=== PATIENT | female | born 1945 | race Caucasian/White ===

== ENCOUNTER 2023-11-23 07:58 | Outpatient (AMB) | payer MEDICARE, MEDICAID, SELFPAY ==
[2023-11-23 08:12] VITALS: BP 160/88; PULSE 80; RESP 19; TEMP 36.5; O2SAT 98
--- NOTE | 2023-11-23 08:12 | ORTHONT_ITS ---
Vital signs 11/23/23 08:12 BP 160/88 H Blood Pressure Source Automatic Cuff Blood Pressure Location Right Upper Arm Position Sitting Respiration 19 Pulse 80 Pulse Source Monitor Temp 97.7 F Temp Source Temporal Artery Scan Pulse Oximetry (%) 98 Oxygen Delivery Method Room Air Comment WHEELCHAIR BOUND Med/Allergies Allergies & Medications Allergies codeine Allergy (Verified 11/23/23 08:17) Medication Reconciliation levothyroxine 175 mcg capsule 175 mcg PO QDAY 10/15/23 [History Confirmed 11/23/23] lisinopril 40 mg tablet 40 mg PO QDAY 10/15/23 [History Confirmed 11/23/23] Subjective Visit Visit for: follow up visit and MRI Immunization / Flu Flu Vaccine in the Last 12 Months: No Flu Vaccine Exclusion Criteria: No Exclusion Criteria History of Present Illness Chief complaint: F/U MRI RESULTS DONE @ [facility] Date of injury / onset of symptoms: APRIL 2023 Patient had a fall and 3 screws in the right hip from a percutaneous hip pinning of the femoral neck fracture. She has had continued pain. She has been nonambulatory for 5 months. She reports extreme weakness and pain down both legs. This starts in the hip and radiates to both legs. There is associated numbness and tingling. She has not had a spine workup. The patient recently had an MRI Personal History Occupation: DISABLED Red flag PMH: none Pain Pain level (0-10): 10 Pain duration: ALL DAY Pain location: other (specify) (WAIST/LEGS ) Pain quality: sharp and other (specify) (STABBING ) Pain timing: night and increases with activity Associated signs & symptoms: numbness and weakness Ambulatory data Ambulatory device: other (specify) (WHEELCHAIR ) Treatments Improvement with previous injections: No Improvement with PT: No Improvement with NSAIDS: n/a Review of Systems Review of Systems: All systems negative unless otherwise noted in HPI. Exam Exam Patient is in no acute distress and is cooperative with the examination today. Breathing is nonlabored. In no respiratory distress. Patient has no paraspinal tenderness. Spinal deformity [cannot] be appreciated. The gait of the patient is Antalgic and she has kyphosis of her spine Bilateral extremities were evaluated and demonstrates sensation intact to light touch. Palpable pedal pulses are present. No significant edema is present. Bilateral knees were examined and the patient has full strength and range of motion.. The left hip was examined. Patient was able to flex to 90 degrees, adduct to 30 degrees, abduct to 40 degrees, internally rotate to 20 degrees, and externally rotate to 20 degrees. Patient has a negative logroll. Stinchfield is negative. The patient is nontender diffusely to touch. The right hip was examined. Patient was able to flex to [90] degrees, adduct to [30] degrees, abduct to [40] degrees, internally rotate to [20] degrees, and externally rotate to [20] degrees. Patient has a [negative] logroll. The stinchfield is [negative]. X-rays of the right hip demonstrate percutaneous pins. Is in good position and there is no backing out. There is minimal arthritis An MRI from [facility] was reviewed by me today. This demonstrates multiple compression fractures from L2-L5. There is mild central stenosis as well. Assessment and Plan Problem List (1) Spinal stenosis: Status: Acute (2) Acute pain of right hip: Status: Acute (3) Compression fracture: Status: Acute Plan: Patient is a 78-year-old female with multiple compression fractures and spinal stenosis. I discussed with her the pain is most likely coming from the back as the majority of her pain is in her back and rating down her legs. I discussed with her that she should be on some sort of bone builder. I have given the patient multiple referrals including pain management as well as a spine surgeon. She may benefit from some sort of percutaneous kyphoplasty or vertebroplasty. I will defer this to a spine surgeon. I have referred this patient to Dr. Brayan Douglas for evaluation and injections at this patient would like to avoid surgery We will see her back in approximately 1 month just in case she has lost to follow-up Advanced Care Planning Discussion Advance care planning discussed with:: patient and significant other Office Procedures GNS Level of Care Nursing/Assessment Patient Status: Established Patient Nursing Assessment/Reassesment: Medication Reconciliation, Update PMH in EMR and Vital Signs Coordination of Care: Complex Care and Chronic Disease 1-5, Education Complex Pt/Fam, Consent,records obtained, informed consent, Results/Orders obtained and Staff clarify orders Established Patient Charge Established Patient Point Assignment: 95 Established Patient Point Charge: EP Level 3 (80-115) Past Medical History Past Medical History Have you ever been diagnosed with any of the following: Neurological Problems Parkinson's Disease: Yes Cardiology Problems Hypertension: Yes Respiratory Problems Smoking: No Smoking Cessation Counseling: No Smoking Exposure: No Tobacco Use: No Surgical History Total Hip Replacement: Yes
== END 2023-11-23 08:37 | disposition home or self-care (01) ==
PROVIDERS: PCP Family Medicine; Referring Provider Family Medicine; Supervising Provider Orthopaedic Surgery Adult Reconstructive Orthopaedic Surgery; Visit Provider Orthopaedic Surgery Adult Reconstructive Orthopaedic Surgery
DX: M25.551 Pain in right hip (principal); M48.061 Spinal stenosis, lumbar region without neurogenic claudication; G20.A1 Parkinson's disease without dyskinesia, without mention of fluctuations; Z87.81 Personal history of (healed) traumatic fracture; Z71.2 Person consulting for explanation of examination or test findings
CPT/HCPCS: 99213; G0463

== ENCOUNTER 2024-02-01 14:02 | Outpatient (AMB) | payer MEDICARE, MEDICAID, SELFPAY ==
[2024-02-01 14:26] VITALS: BP 157/91; PULSE 78; RESP 18; TEMP 36.4; O2SAT 97; BMI 20.3
--- NOTE | 2024-02-01 14:26 | RHCORTHONT_ITS ---
Vital signs 02/01/24 14:26 Height 1.6 m Height Method Stated Weight 52.163 kg Weight Measurement Method Standing Scale BMI 20.3 BP 157/91 H Blood Pressure Source Automatic Cuff Blood Pressure Location Right Upper Arm Position Sitting Respiration 18 Pulse 78 Pulse Source Monitor Temp 97.6 F Temp Source Temporal Artery Scan Pulse Oximetry (%) 97 Oxygen Delivery Method Room Air Med/Allergies Allergies & Medications Allergies codeine Allergy (Verified 02/01/24 14:27) Medication Reconciliation levothyroxine 175 mcg capsule 175 mcg PO QDAY 10/15/23 [History Confirmed 02/01/24] lisinopril 40 mg tablet 40 mg PO QDAY 10/15/23 [History Confirmed 02/01/24] Exam Exam Patient is in no acute distress and is cooperative with the examination today. Breathing is nonlabored. In no respiratory distress. Patient has no paraspinal tenderness. Spinal deformity [cannot] be appreciated. The gait of the patient is Antalgic and she has kyphosis of her spine Bilateral extremities were evaluated and demonstrates sensation intact to light touch. Palpable pedal pulses are present. No significant edema is present. Bilateral knees were examined and the patient has full strength and range of motion.. The left hip was examined. Patient was able to flex to 90 degrees, adduct to 30 degrees, abduct to 40 degrees, internally rotate to 20 degrees, and externally rotate to 20 degrees. Patient has a positive logroll. While rotation is great, she is 3 cm short on the left. The right hip was examined. Patient was able to flex to [90] degrees, adduct to [30] degrees, abduct to [40] degrees, internally rotate to [20] degrees, and externally rotate to [20] degrees. Patient has a [negative] logroll. The stinchfield is [negative]. A CT of the left hip was reviewed. There is an AP pelvis only. This demonstrates a high riding left hip with a completely displaced femoral neck fracture. Assessment and Plan Problem List (1) Left displaced femoral neck fracture: Status: Acute (2) Spinal stenosis: Status: Acute (3) Acute pain of right hip: Status: Acute (4) Compression fracture: Status: Acute Plan: Patient is a 78-year-old female with multiple compression fractures and spinal stenosis With a left femoral neck fracture that developed within the last 3 months. She has been nonweightbearing denies any trauma within the last 3 months. I discussed with her that it is quite strange that she has a femoral neck fracture right now Specially in the setting of no trauma. I discussed with her 2 options. I discussed nonoperative treatment versus surgical treatment. For the surgical treatment I discussed a Girdlestone as well as a left hip he miarthroplasty. He will need to be cemented as her bone is paperthin and is severely osteoporotic. She has had over 10 compression fractures in her spine and is at high risk for fracture during surgery as well as dislocation given her spine pathology. I discussed with her that I am not sure she will ever be able to walk as she has been unable to walk for the last year and and this does not include the fact that she now has a displaced femoral neck fracture. I discussed with her that she is at high risk for complications including infection, dislocation, and medical complications. The fracture is of unknown chronicity and I discussed with her that it will be very hard to reduce her hip. I also discussed with her she is at high risk for dislocation, infection, medical complications. This is extremely high risk surgery and will be a very difficult reduction that this is high riding hip and has been ongoing for quite a while. We will get her set up for surgery as soon as possible. I am not sending her to the ER as this is been ongoing for at least 4 to 6 weeks and there was no recent fall. Advanced Care Planning Discussion Advance care planning discussed with:: patient and significant other Questionairres Past Medical History Past Medical History Have you ever been diagnosed with any of the following: Neurological Problems Parkinson's Disease: Yes Cardiology Problems Hypertension: Yes Respiratory Problems Smoking: No Smoking Cessation Counseling: No Smoking Exposure: No Tobacco Use: No Surgical History Total Hip Replacement: Yes Subjective Immunization / Flu Flu Vaccine in the Last 12 Months: No Flu Vaccine Exclusion Criteria: Already Received History of Present Illness Chief complaint: Left hip pain Patient is a 78-year-old female with left hip pain. She has been nonambulatory for over 6 months at this point since her right hip fracture. She reports that she was weightbearing somewhat. She denies any fall. On recent x-rays when they were Doing a bone scan, they found that she had a femoral neck fracture. I looked at the prior imaging and it was not there on October 15, 2023. We discussed with the patient that if she had no fracture that this is a little strange. I discussed with her that this is typically not a great prognostic sign as well as she had a fracture that was atraumatic. In addition she has multiple compression fractures between L1 and L5. Review of Systems Review of Systems: All systems negative unless otherwise noted in HPI.
== END 2024-02-01 15:01 | disposition home or self-care (01) ==
LOC: HODSRG 14:02
PROVIDERS: PCP Family Medicine; Referring Provider Family Medicine; Supervising Provider Orthopaedic Surgery Adult Reconstructive Orthopaedic Surgery; Visit Provider Orthopaedic Surgery Adult Reconstructive Orthopaedic Surgery
DX: S72.002A Fracture of unspecified part of neck of left femur, initial encounter for closed fracture (principal); S32.059A Unspecified fracture of fifth lumbar vertebra, initial encounter for closed fracture; X58.XXXA Exposure to other specified factors, initial encounter; M25.551 Pain in right hip; M48.00 Spinal stenosis, site unspecified; I10 Essential (primary) hypertension; G20.A1 Parkinson's disease without dyskinesia, without mention of fluctuations
CPT/HCPCS: 99213; G0463